=== PATIENT | male | born 1945 | race Caucasian/White ===

== ENCOUNTER 2020-12-29 23:41 | Emergency (ER) | payer MEDICARE, OTHER, SELFPAY ==
[2020-12-29 23:45] VITALS: BP 164/84; PULSE 76; RESP 18; TEMP 35.7; O2SAT 100; BMI 33.0
--- NOTE | 2020-12-30 00:28 | ECG_ITS ---
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 Measurements Intervals [place] Rate: 58 P: 17 RI: 189 QRS: -63 QRSD: 131 T: 29 QT: 469 QTc: 463 Interpretive Statements SINUS BRADYCARDIA WITH OCCASIONAL VENTRICULAR PREMATURE COMPLEXES INTRAVENTRICULAR CONDUCTION DELAY [130+ ms QRS DURATION] MINIMAL VOLTAGE CRITERIA FOR LVH, CONSIDER NORMAL VARIANT [MEETS CRITERIA IN ONE OF: R(aVL), S(V1), R(V5), R(V5/V6)+S(V1)] No previous ECG available for comparison Electronically Signed On 12-30-2020 16:10:25 [employer] by Anita Salazra M.D. [email or web address]
--- NOTE | 2020-12-30 00:34 | PC.NURSE ---
Pt. is terrified of needles. Pt. was in tears and anxious when IV was started
[2020-12-30 00:39] LABS: Basophils # 0.1 10^3/uL (0.0-0.1); Basophils % 1.1 %; Eosinophils # 0.7 10^3/uL (0.0-0.8); Eosinophils % 8.7 %; Hematocrit 47.8 % (42.0-52.0); Hemoglobin 16.6 g/dL (11.7-16.6); Lymphocytes # 3.9 10^3/uL (0.8-4.8); Lymphocytes % 48.3 %; Mean Corpuscular HGB Conc 34.7 g/dL (30.0-36.0); Mean Corpuscular Hemoglobin 29.5 pg (28.0-34.0); Mean Corpuscular Volume 85.1 fl (80-94); Mean Platelet Volume 10.9 fL (7.4-10.4); Monocytes # 0.9 10^3/uL (0.2-0.9); Monocytes % 11.3 %; Neutrophils # 2.43 10^3/uL (1.8-7.7); Neutrophils % 30.5 %; Nucleated Red Blood Cells % 0 %; Platelet Count 217 10^3/cmm (130-400); Red Blood Count 5.62 10^6/uL (4.1-5.3); Red Cell Distribution Width 13.4 % (12.1-15.1)
[2020-12-30 01:14] LABS: Anion Gap 17.4 (5-19); Blood Urea Nitrogen 19 mg/dL (8-23); Carbon Dioxide 26 mmol/L (22-29); Chloride 100 mmol/L (98-107); Glucose 90 mg/dL (65-115); NT Pro B Type Natriuretic Pept 104 pg/mL (0-450); Osmolality Calculated 292 mOsm/kg (285-295); Potassium 3.4 mmol/L (3.5-5.1); Sodium 140 mmol/L (136-145)
--- NOTE | 2020-12-30 01:19 | W.ED.CHESTPA ---
HPI - Chest Pain General: Chief Complaint: Chest Pain Stated Complaint: CHEST PAINS LT SIDE Time Seen by Provider: 12/30/20 00:57 History of Present Illness: HPI narrative: Patient is a 75-year-old male who comes to the ED with episode of chest pain. Symptoms started tonight just prior to arrival. Patient says he was sleeping and he woke up to go to the bathroom and when he went to lay back down he felt sharp pain in the left lower side of his chest that radiated up to the top left side of chest. He said the pain was sharp and only lasted a couple seconds. He had about 2 more episodes of sharp pain on the left side of his chest when laying down and decided to come to the ED to be evaluated. The chest pain was episodic and only lasted for several seconds. Denies any nausea, diaphoresis, shortness of breath or any other symptoms during chest pain. He has not had any reoccurring incidence of chest pain on the way to the ED and upon arrival. Patient says he feels normal and is not having any chest pain currently. Patient takes baby aspirin in the morning daily. Denies any fever, chills, abdominal pain, nausea/vomiting, bladder or bowel symptoms. MD complaint: chest pain Onset (ago): minute(s) (Brief and only lasted several seconds) Timing of current episode: episodic and now resolved Prior episodes: No Onset: during rest Pain location: left chest Associated symptoms: Deny abdominal pain, dyspnea, fever(s), nausea, palpitations or vomiting Review of Systems Const: Denies: fever(s), chills or fatigue Eyes: Denies: change in vision or eye discomfort ENMT: Denies: throat pain, odynophagia, nasal discharge or nasal congestion Card: Reports: chest pain (episodic-resolved upon arrival); Denies: palpitations, edema, swelling of feet/ankles, dyspnea on exertion or orthopnea Resp: Denies: dyspnea, productive cough or non-productive cough GI: Denies: abdominal pain, nausea, vomiting, diarrhea, constipation or hematochezia : Denies: flank pain, difficulty urinating, dysuria or hematuria Musc: Denies: neck pain, back pain or extremity swelling Skin/Breast: Denies: rash or new lesions Neuro: Denies: headache(s), numbness in extremities or weakness in extremities Physical Exam Const: COMMON NORMALS: no acute distress, patient oriented x3, healthy appearing and alert GENERAL APPEARANCE: cooperative and comfortable HENMT: COMMON NORMALS: normocephalic HEAD & SCALP: normocephalic MOUTH: Normal oral and palatal mucosa present THROAT: posterior oropharynx normal and uvula midline Neck/C-Spine: COMMON NORMALS: supple GENERAL: Yes normal visual inspection Resp: COMMON NORMALS: normal respiratory effort, No retractions, No use of accessory muscles and clear to auscultation bilaterally AUSCULTATION: clear to auscultation bilaterally Cardio: COMMON NORMALS: regular rate, regular rhythm, S1 normal heart sound present, S2 normal heart sound present, No gallops present (Cardio), No clicks present (Cardio), No murmurs present (Cardio) and Peripheral pulses 2+ throughout RATE: regular rate RHYTHM: regular rhythm HEART SOUNDS: S1 normal heart sound present and S2 normal heart sound present PERIPHERAL PULSES: Peripheral pulses 2+ throughout GI: COMMON NORMALS: Normal to inspection, nondistended, normoactive bowel sounds present, Soft to palpation, non-tender and no masses PALPATION: Yes Soft to palpation : COMMON NORMALS: Yes no CVA tenderness BLADDER/KIDNEY EXAM: Yes no CVA tenderness Back/Pelvis: COMMON NORMALS: no CVA tenderness Extremity: COMMON NORMALS: normal to inspection Neuro: COMMON NORMALS: patient oriented x3 and moves all extremities SENSORIUM/ORIENTATION: Yes alert Skin: GENERAL SKIN EXAM: dry skin Course ED course: Heart score-3 (Low risk of MACE) Vital Signs: Vital signs: Vital Signs Temperature 96.3 F L 12/29/20 23:45 Pulse Rate 54 L 12/30/20 01:30 Respiratory Rate 18 12/30/20 01:30 Blood Pressure 124/71 12/30/20 03:30 Pulse Oximetry 97 12/30/20 01:30 MDM - Chest Pain MDM Narrative: Medical decision making narrative: Patient is a 75-year-old male comes to the ED with brief episode of chest pain. Past medical history of hyperlipidemia and hypertension. Patient says he got up tonight to go to the bathroom when he went to lay back down he had brief sharp pain in the left lower chest that radiated up to upper left chest. He had 3 similar sharp pain episodes that lasted for several seconds and then resolved. He had no other episodes of chest pain while in route or while here in the ED. Denies any shortness of breath or diaphoresis during episode. Here in the ED patient feels normal and is not having any chest pain. Vitals are stable. Exam of patient is benign. CBC and CMP are unremarkable. Troponins negative. BNP normal. EKG showed no signs of acute ND. Chest x-ray showed no acute findings. Heart score 3. Patient was diagnosed with noncardiac chest pain and was stable for discharge home. I told patient I recommend him doing an outpatient stress test and that I could place an order and get an outpatient stress test set up for him. Patient preferred to contact his PCP tomorrow and discuss ED visit with them and have his PCP set up his stress test. I highlighted the importance of patient to have an outpatient stress test and he understood and agreed with plan. Patient was discharged home given strict return to ED precautions. Patient understood and agree with plan. Lab Data: Attestation: I reviewed the patient's lab results. Labs: Lab Results 12/30/20 12/30/20 12/30/20 00:17 00:17 00:17 WBC 8.0 10^3/uL 10^3/ uL (4.0-10.0) RBC 5.62 10^6/uL H 10 ^6/uL (4.1-5.3) Hgb 16.6 g/dL g/dL (11.7-16.6) Hct 47.8 % % (42.0-52.0) MCV 85.1 fl fl (80-94) MCH 29.5 pg pg (28.0-34.0) MCHC 34.7 g/dL g/dL (30.0-36.0) RDW 13.4 % % (12.1-15.1) Plt Count 217 10^3/cmm 10^3 /cmm (130-400) MPV 10.9 fL H fL (7.4-10.4) Neut % (Auto) 30.5 % % Lymph % (Auto) 48.3 % % Snyder % (Auto) 11.3 % % Eos % (Auto) 8.7 % % Baso % (Auto) 1.1 % % Neut # (Auto) 2.43 10^3/uL 10^3 /uL (1.8-7.7) Lymph # (Auto) 3.9 10^3/uL 10^3/ uL (0.8-4.8) Snyder # (Auto) 0.9 10^3/uL 10^3/ uL (0.2-0.9) Eos # (Auto) 0.7 10^3/uL 10^3/ uL (0.0-0.8) Baso # (Auto) 0.1 10^3/uL 10^3/ uL (0.0-0.1) Nucleated RBC % (a uto) 0 % % Nucleated RBCs # 0.0 /100WBC /100W BC Sodium 140 mmol/L mmol/L (136-145) Potassium 3.4 mmol/L L mmol /L (3.5-5.1) Chloride 100 mmol/L mmol/L (98-107) Carbon Dioxide 26 mmol/L mmol/L (22-29) Anion Gap 17.4 (5-19) BUN 19 mg/dL mg/dL (8-23) Creatinine 1.1 mg/dL mg/dL (0.7-1.2) GFR Calculation Not Reportable Glucose 90 mg/dL mg/dL (65-115) Calculated Osmolal ity 292 mOsm/kg mOsm/ kg (285-295) Calcium 9.0 mg/dL mg/dL (8.5-10.5) Troponin T Baselin e 14 ng/L ng/L (0-15) Troponin T 120 Min [place] Delta Troponin T NT-Pro-B Natriuret Pep 104 pg/mL pg/mL (0-450) 12/30/20 02:16 WBC RBC Hgb Hct MCV MCH MCHC RDW Plt Count MPV Neut % (Auto) Lymph % (Auto) Snyder % (Auto) Eos % (Auto) Baso % (Auto) Neut # (Auto) Lymph # (Auto) Snyder # (Auto) Eos # (Auto) Baso # (Auto) Nucleated RBC % (a uto) Nucleated RBCs # Sodium Potassium Chloride Carbon Dioxide Anion Gap BUN Creatinine GFR Calculation Glucose Calculated Osmolal ity Calcium Troponin T Baselin e Troponin T 120 Min [place] 12.47 ng/L ng/L (0-15) Delta Troponin T -1.53 ABS# L ABS# (0-10) NT-Pro-B Natriuret Pep Imaging Data^: CXR: Attestation: I personally reviewed and interpreted this imaging study as follows: Radiologist's impression: [address] [place] [address] XRay Report Signed Patient: Tre Espinoza JR Unit #: [id number] : 1945 Age/Sex: 75 / M ADM Date: 12/29/20 Loc: ER Room/Bed: Attending Dr: Ordering Provider/Ordering MD: Cas Gomes Date of Service: 12/30/20 Procedure(s): XR chest 1V portable [id number] Accession Number(s): [id number] Report Number: [id number] PROCEDURE INFORMATION: Exam: XR Chest Exam date and time: 12/30/2020 1:27 AM Age: 75 years old Clinical indication: Chest pressure; Patient HX: Left sided chest pain. ; Additional info: Cp TECHNIQUE: Imaging protocol: XR of the chest. Views: 1 view. COMPARISON: No relevant prior studies available. FINDINGS: Lungs: Unremarkable. No consolidation. Pleural spaces: Unremarkable. No pleural effusion. No pneumothorax. Heart/Mediastinum: Unremarkable. No cardiomegaly. Bones/joints: Unremarkable. Soft tissues: Examination limited by body habitus. XR/XR chest 1V portable [id number] IMPRESSION: 1. Examination limited by body habitus. 2. No acute disease. Radiation Dose CTDIVOL = (mGy): DLP = (mGy-cm) Dictated By: Sheldon Salazar Signed By: Sheldon Salazar Signed Date/Time: 12/30/20210 DD/ EKG Data^: EKG 1: Attestation: I personally reviewed and interpreted this EKG as follows: EKG interpretation date: 12/30/20 Interpretation: Sinus bradycardia with occasional PVCs. 58 bpm, no ST segment elevation or depression seen. EKG 2: Attestation: I personally reviewed and interpreted this EKG as follows: EKG interpretation date: 12/30/20 EKG interpretation time: 02:05 Interpretation: Sinus bradycardia, 52 bpm, no ST segment elevation or depression seen. Discharge Plan Discharge Patient Disposition: Home Clinical Impression: Chest pain, non-cardiac Condition: Stable Discharge Orders: Discharge ED (Routine); Ordered 12/30/20 Ordered By: Cas Gomes Referrals: Kayleigh Naranjo MD [Primary Care Provider] - Discharge Diet: Regular Discharge Activity: Resume usual activity Patient Instructions: Noncardiac Chest Pain (ED) Activity Restrictions/Additional Instructions: Follow-up with medical provider as directed. Contact your PCP tomorrow morning to set up an appoint with them for further evaluation and to discuss getting set up for a cardiac stress test. Continue taking all home medications as previously prescribed. Return to the ER or your medical provider if condition worsens. Please read and understand discharge instructions. Thank you for choosing [facility] for your healthcare needs today. Please realize this is an emergency room and that we are providing you with a medical screening exam and this may not be complete and all inclusive of all the testing and or work up that you may need to determine your ailment or severity of your illness. It is very important that you follow up as instructed or that you return to the Emergency Department should you have concerns or if your condition changes or worsens in any way. Coding Level of Care Code ED Crime Data Specialist for Chg Fwd Exam Comprehensive
--- NOTE | 2020-12-30 01:27 | XRR_ITS ---
PROCEDURE INFORMATION: Exam: XR Chest Exam date and time: 12/30/2020 1:27 AM Age: 75 years old Clinical indication: Chest pressure; Patient HX: Left sided chest pain. ; Additional info: Cp TECHNIQUE: Imaging protocol: XR of the chest. Views: 1 view. COMPARISON: No relevant prior studies available. FINDINGS: Lungs: Unremarkable. No consolidation. Pleural spaces: Unremarkable. No pleural effusion. No pneumothorax. Heart/Mediastinum: Unremarkable. No cardiomegaly. Bones/joints: Unremarkable. Soft tissues: Examination limited by body habitus. XR/XR chest 1V portable [id number] IMPRESSION: 1. Examination limited by body habitus. 2. No acute disease. Radiation Dose CTDIVOL = (mGy): DLP = (mGy-cm)
[2020-12-30 01:30] VITALS: BP 136/88; PULSE 54; RESP 18; O2SAT 97
[2020-12-30 01:30] LABS: Troponin(5th) Baseline 14 ng/L (0-15)
[2020-12-30 02:55] LABS: Troponin 5 2HR 12.47 ng/L (0-15)
[2020-12-30 02:56] LABS: Troponin 5 2HR Delta -1.53 ABS# (0-10)
[2020-12-30 03:30] VITALS: BP 124/71
== END 2020-12-30 03:33 | disposition home or self-care (01) ==
PROVIDERS: Emergency Medicine; Emergency Provider Physician Assistant; Family Provider Orthopaedic Surgery; PCP Orthopaedic Surgery
DX: R07.89 Other chest pain (principal)
CPT/HCPCS: 71045; 80048; 83880; 84484; 85025; 93005; 99283

== ENCOUNTER 2022-08-29 13:32 | Outpatient (CLI) | payer MEDICARE, OTHER, SELFPAY ==
--- NOTE | 2022-08-29 13:44 | CTR_ITS ---
PROCEDURE INFORMATION: Exam: CT Abdomen And Pelvis Without And With Contrast Exam date and time: 08/29/2022 2:08 PM Age: 76 years old Clinical indication: Condition or disease; Patient HX: Albert hematuria and bladder infection last Saturday TECHNIQUE: Imaging protocol: Computed tomography of the abdomen and pelvis without and with contrast. 3D rendering (Not supervised by radiologist): MIP and/or 3D reconstructed images were created by the technologist. Radiation optimization: All CT scans at this facility use at least one of these dose optimization techniques: automated exposure control; mA and/or kV adjustment per patient size (includes targeted exams where dose is matched to clinical indication); or iterative reconstruction. Contrast material: OMNI 350; Contrast volume: 95 ml; Contrast route: INTRAVENOUS (IV); REPORTING DATA: Count of CT and Cardiac NM exams in prior 12 months: This patient has received 0 known CTs and 0 known cardiac nuclear medicine studies in the 12 months prior to the current study. COMPARISON: CR XR chest 1V portable [id number] 12/30/2020 1:33 AM RADIATION DOSE METRICS: Total DLP (mGy-cm): 2836.14 FINDINGS: Lungs: Mild bibasilar subsegmental atelectasis versus scarring. Multiple sub 4 mm pulmonary micronodules at the lung bases, some of which are calcified. Coronary arteries: Mild coronary artery calcification. Liver: Normal without focal lesions. Gallbladder and bile ducts: Normal. No calcified stones. No ductal dilation. Pancreas: Diffuse fatty infiltration of the pancreas. Spleen: Normal. Adrenal glands: Normal. No mass. Kidneys and ureters: Subcentimeter bilateral renal hypodensities are too small to characterize. Otherwise unremarkable. Symmetric renal parenchymal enhancement and excretion without calcified stone, hydronephrosis, evidence of urothelial thickening, filling defect or stricture. Stomach and bowel: No bowel dilatation or evidence of mucosal thickening. Colonic diverticulosis without findings of diverticulitis. Appendix: Normal. Intraperitoneal space: No free air, free fluid, or well-organized fluid collection. Vasculature: Mild systemic atherosclerotic calcification without aortic aneurysm. Lymph nodes: No enlarged lymph nodes. Urinary bladder: Underdistended urinary bladder shows mild wall thickening and numerous small fluid and contrast filled outpouchings that may represent pseudodiverticula from trabecular wall thickening. No calcified stones. Mildly enlarged prostate measures 4.7 cm in transverse dimension with median lobe hypertrophy protruding into the urinary bladder. Reproductive: Mildly enlarged prostate measures 4.7 cm in transverse dimension with median lobe hypertrophy protruding into the urinary bladder. Bones/joints: No acute fracture. Mild dextroconvex curvature of the thoracolumbar spine. Mild degenerative changes along the imaged axial and proximal appendicular skeletal system. Small nonaggressive sclerotic focus in the right proximal femur. Soft tissues: Small fat containing umbilical and bilateral inguinal hernias. CT/CT abdomen pelvis wo/w [id number] IMPRESSION: 1. Urinary bladder findings suspicious for chronic outlet obstruction in the setting of prostatomegaly. Could also represent sequela of chronic inflammatory or infectious disorder, possibly cystitis cystica. Correlate with urologic evaluation. 2. Multiple sub 4 mm pulmonary micronodules at the lung bases. For patients at low risk (minimal or absent history of smoking and of other known risk factors), no routine follow-up is indicated. For patients at high risk (history of smoking or of other known risk factors), consider optional CT Chest at 12 months. (Reference: Flori) 3. Chronic and incidental findings as above, to include atherosclerosis and colonic diverticulosis. REFERENCES: Flori Lira et al. Guidelines for Management of Incidental Pulmonary Nodules Detected on CT Images: From the Fleischner Society 2017. Radiology. 2017;284(1):228-243.
[2022-08-29] MEDS: iohexol 350 mg/mL 500 mL Btl (per mL) IV (14:34)
== END 2022-08-29 13:33 | disposition home or self-care (01) ==
PROVIDERS: Family Provider Urology; PCP Urology; Visit Provider Family Medicine
DX: R31.0 Gross hematuria (principal)
CPT/HCPCS: 74178; Q9967

== ENCOUNTER → 2023-04-30 08:12 | Outpatient (BNVA) | payer MEDICARE, OTHER, SELFPAY | PROVIDERS: Family Provider Urology; PCP Urology; Visit Provider Dermatology | DX: C44.319 Basal cell carcinoma of skin of other parts of face (principal); C44.92 Squamous cell carcinoma of skin, unspecified; L57.0 Actinic keratosis | CPT/HCPCS: 12052; 17311; 99203 ==

== ENCOUNTER → 2023-05-09 08:11 | Outpatient (BNVA) | payer MEDICARE, OTHER, SELFPAY | PROVIDERS: Family Provider Urology; PCP Urology; Visit Provider Dermatology | DX: L57.0 Actinic keratosis (principal); C44.92 Squamous cell carcinoma of skin, unspecified; Z48.02 Encounter for removal of sutures; L82.1 Other seborrheic keratosis; L81.4 Other melanin hyperpigmentation; Z85.828 Personal history of other malignant neoplasm of skin | CPT/HCPCS: 17004; 99213 ==

== ENCOUNTER → 2023-09-16 13:28 | Outpatient (BNVA) | payer MEDICARE, OTHER, SELFPAY | PROVIDERS: Family Provider Urology; PCP Urology; Visit Provider Nurse Practitioner Family | DX: D48.5 Neoplasm of uncertain behavior of skin (principal); L57.0 Actinic keratosis; L82.1 Other seborrheic keratosis; L81.4 Other melanin hyperpigmentation; Z85.828 Personal history of other malignant neoplasm of skin | CPT/HCPCS: 11102; 17000; 99213 ==

== ENCOUNTER → 2024-04-13 12:54 | Outpatient (BNVA) | payer MEDICARE, OTHER, SELFPAY | PROVIDERS: Family Provider Urology; PCP Urology; Visit Provider Dermatology | DX: C44.629 Squamous cell carcinoma of skin of left upper limb, including shoulder (principal); D04.62 Carcinoma in situ of skin of left upper limb, including shoulder; L20.89 Other atopic dermatitis; Z08 Encounter for follow-up examination after completed treatment for malignant neoplasm; Z85.828 Personal history of other malignant neoplasm of skin; L57.0 Actinic keratosis | CPT/HCPCS: 17000; 99213 ==

== ENCOUNTER → 2024-08-28 07:56 | Outpatient (BNVA) | payer MEDICARE, OTHER, SELFPAY | PROVIDERS: Family Provider Urology; PCP Urology; Visit Provider Nurse Practitioner Family | DX: D48.5 Neoplasm of uncertain behavior of skin (principal); Z08 Encounter for follow-up examination after completed treatment for malignant neoplasm; Z85.828 Personal history of other malignant neoplasm of skin; L57.0 Actinic keratosis | CPT/HCPCS: 17000; 99213 ==

== ENCOUNTER → 2024-09-15 13:50 | Outpatient (BNVA) | payer MEDICARE, OTHER, SELFPAY | PROVIDERS: Family Provider Urology; PCP Urology; Visit Provider Nurse Practitioner Family | DX: L81.4 Other melanin hyperpigmentation (principal); L57.8 Other skin changes due to chronic exposure to nonionizing radiation; Z08 Encounter for follow-up examination after completed treatment for malignant neoplasm; Z85.828 Personal history of other malignant neoplasm of skin; D48.5 Neoplasm of uncertain behavior of skin; L57.0 Actinic keratosis | CPT/HCPCS: 11102; 17000; 99213 ==